=== PATIENT | female | born 1965 | race Two or more races ===

== ENCOUNTER 2022-04-05 01:09 | Inpatient (IN) | payer MEDICAID ==
[~2022-04-05] VITALS: Ht 160 cm; Wt 85.0 kg
[2022-04-05] MEDS ORDERED: FUROSEMIDE 20 MG/2 ML VIAL IV ONE (01:45)
[2022-04-05 02:05] LABS: Basophils # (auto) 0 10 ^3/uL (0-0.2); Basophils % (auto) 0.3 % (0.0-2.0); Eosinophils # (auto) 0.2 10 ^3/uL (0-0.8); Eosinophils % (auto) 1.4 % (0.0-7.0); Hematocrit 36.7 % (36.0-46.0); Hemoglobin 12.5 g/dL (12.2-16.2); Lymphocytes # (auto) 1.2 10 ^3/uL (0.4-5.4); Lymphocytes % (auto) 8.8 % (10.0-50.0); Mean Corpuscular Hemoglobin 27.4 pg (28.0-32.0); Mean Corpuscular Volume 80.4 fL (80.0-100.0); Monocytes # (auto) 0.7 10 ^3/uL (0-1.3); Monocytes % (auto) 5.2 % (0.0-12.0); Neutrophils # (auto) 11.1 10 ^3/uL (1.6-8.6); Neutrophils % (auto) 84.3 % (37.0-80.0); Nucleated Red Blood Cells % 0.1 %; Red Blood Cells 4.56 10^6/uL (4.0-5.20); Red Cell Distribution Width 16.6 % (11.8-14.3); White Blood Cell 13.2 10^3/uL (4.4-10.8)
[2022-04-05 02:23] LABS: Albumin 3.3 g/dL (3.4-5.0); Calcium 8.3 mg/dL (8.5-10.1); Potassium 3.7 mmol/L (3.5-5.1)
[2022-04-05 02:26] LABS: BUN/Creatinine Ratio 15.2
[2022-04-05 02:28] LABS: Bilirubin, Total 0.5 mg/dL (0.2-1.0); Total Protein 7.5 g/dL (6.4-8.2)
[2022-04-05 03:05] LABS: Urine Bacteria NONE SEEN /hpf (None Seen); Urine WBC 2 /hpf (0 - 5)
[2022-04-05 03:11] LABS: Urine Specific Gravity 1.005 (1.001-1.035)
[2022-04-05 03:12] LABS: Urine Blood Normal /uL (Negative)
[2022-04-05] MEDS ORDERED: cefTRIAXone 1GM/50ML D5W 50 ML IV ONE (04:45)
[2022-04-05] MEDS ORDERED: AZITHROMYCIN 500MG/ 250ML 250 ML IV ONE (04:45)
[2022-04-05] MEDS ORDERED: TEMAZEPAM 15 MG CAP PO PRN (05:45)
[2022-04-05] MEDS ORDERED: ALBUTEROL SULF 2.5 MG/0.5ML(0.5%) NEB SOLN NEB PRN (05:45)
[2022-04-05] MEDS ORDERED: ONDANSETRON HCL 4 MG/2 ML VIAL IV PRN (05:45)
[2022-04-05] MEDS ORDERED: NITROGLYCERIN 0.4 MG SL TAB SL PRN (05:45)
[2022-04-05] MEDS ORDERED: MORPHINE SULFATE INJ 2 MG/ml SYRG IV PRN (05:45)
[2022-04-05] MEDS: ACETAMINOPHEN 325 MG TAB PO PRN ×2 (06:15→20:14)
[2022-04-05 07:08] VITALS: BP 132/68
[2022-04-05] MEDS: LISINOPRIL 5 MG TAB PO SCH (09:39)
[2022-04-05] MEDS: PANTOPRAZOLE 40 MG TAB PO SCH (09:39)
[2022-04-05] MEDS: ENOXAPARIN SOD 40 MG/0.4 ML SYRINGE SC SCH ×2 (09:40→09:46)
[2022-04-06] VITALS (8 sets, daily range): BP systolic 114–145; BP diastolic 53–75
[2022-04-06 06:29] LABS: Basophils # (auto) 0 10 ^3/uL (0-0.2); Basophils % (auto) 0.5 % (0.0-2.0); Eosinophils # (auto) 0.4 10 ^3/uL (0-0.8); Eosinophils % (auto) 4.4 % (0.0-7.0); Hematocrit 32.5 % (36.0-46.0); Hemoglobin 11.2 g/dL (12.2-16.2); Lymphocytes # (auto) 2.1 10 ^3/uL (0.4-5.4); Lymphocytes % (auto) 23.9 % (10.0-50.0); Mean Corpuscular Hemoglobin 28.1 pg (28.0-32.0); Mean Corpuscular Hgb Conc. 34.5 g/dL (32.0-36.0); Mean Corpuscular Volume 81.4 fL (80.0-100.0); Monocytes # (auto) 0.6 10 ^3/uL (0-1.3); Monocytes % (auto) 6.8 % (0.0-12.0); Neutrophils # (auto) 5.8 10 ^3/uL (1.6-8.6); Neutrophils % (auto) 64.4 % (37.0-80.0); Nucleated Red Blood Cells % 0.2 %; Red Blood Cells 3.99 10^6/uL (4.0-5.20); Red Cell Distribution Width 16.5 % (11.8-14.3)
[2022-04-06 06:50] LABS: Calcium 8.7 mg/dL (8.5-10.1); Potassium 3.5 mmol/L (3.5-5.1)
[2022-04-06 06:53] LABS: Albumin 2.8 g/dL (3.4-5.0); BUN/Creatinine Ratio 17.2
[2022-04-06] MEDS ORDERED: CLON0.1T PO (06:55)
[2022-04-06 06:57] LABS: Bilirubin, Total 0.8 mg/dL (0.2-1.0); Total Protein 6.4 g/dL (6.4-8.2)
[2022-04-06] MEDS: cefTRIAXone 1GM/50ML D5W 50 ML IV SCH (08:02)
[2022-04-06] MEDS: LISINOPRIL 5 MG TAB PO SCH (08:03)
[2022-04-06] MEDS: PANTOPRAZOLE 40 MG TAB PO SCH (08:03)
[2022-04-06] MEDS: ENOXAPARIN SOD 40 MG/0.4 ML SYRINGE SC SCH ×2 (08:04→08:57)
[2022-04-06] MEDS: ACETAMINOPHEN 325 MG TAB PO PRN (08:15)
[2022-04-06] MEDS: AZITHROMYCIN 500MG/ 250ML 250 ML IV SCH (12:29)
[2022-04-06] MEDS ORDERED: DEXTROSE (50%) 50ML SYRG IV PRN (12:30)
[2022-04-06] MEDS ORDERED: DOCUSATE SOD 100 MG CAP PO PRN (14:30)
[2022-04-06] MEDS: ACCU-CHEK COMFORT CURVE STRIP VI SCH ×2 (16:56→21:32)
[2022-04-06] MEDS: InsuLIN REG 1unit/0.01ml Soln (100units/ml) SC SCH ×2 (16:56→21:54)
[2022-04-07 05:00] VITALS: BP 114/48
[2022-04-07] MEDS: InsuLIN REG 1unit/0.01ml Soln (100units/ml) SC SCH ×4 (07:00→21:21)
[2022-04-07] MEDS: ACCU-CHEK COMFORT CURVE STRIP VI SCH ×4 (07:41→21:26)
[2022-04-07 08:00] VITALS: BP 114/58
[2022-04-07 08:30] VITALS: BP 120/51
[2022-04-07] MEDS: LISINOPRIL 5 MG TAB PO SCH (08:40)
[2022-04-07] MEDS: PANTOPRAZOLE 40 MG TAB PO SCH (08:41)
[2022-04-07] MEDS: cefTRIAXone 1GM/50ML D5W 50 ML IV SCH (08:41)
[2022-04-07] MEDS: ENOXAPARIN SOD 40 MG/0.4 ML SYRINGE SC SCH (08:51)
[2022-04-07] MEDS: AZITHROMYCIN 500MG/ 250ML 250 ML IV SCH (10:00)
[2022-04-07 12:38] VITALS: BP 130/71
[2022-04-07 16:45] VITALS: BP 126/55
[2022-04-07 22:00] VITALS: BP 164/82
[2022-04-08 05:00] VITALS: BP 126/57
[2022-04-08] MEDS: ACCU-CHEK COMFORT CURVE STRIP VI SCH ×4 (07:00→21:23)
[2022-04-08] MEDS: InsuLIN REG 1unit/0.01ml Soln (100units/ml) SC SCH ×4 (07:00→21:23)
[2022-04-08 09:00] VITALS: BP 130/52
[2022-04-08] MEDS: cefTRIAXone 1GM/50ML D5W 50 ML IV SCH (09:46)
[2022-04-08] MEDS: PANTOPRAZOLE 40 MG TAB PO SCH (09:47)
[2022-04-08] MEDS: LISINOPRIL 5 MG TAB PO SCH (09:47)
[2022-04-08] MEDS: ACETAMINOPHEN 325 MG TAB PO PRN (09:50)
[2022-04-08] MEDS: ENOXAPARIN SOD 40 MG/0.4 ML SYRINGE SC SCH (10:00)
[2022-04-08] MEDS: AZITHROMYCIN 500MG/ 250ML 250 ML IV SCH (12:54)
[2022-04-08 13:00] VITALS: BP 141/72
[2022-04-08] MEDS: THROAT LOZENGES(CEPASTAT) MT PRN ×2 (15:36→21:22)
[2022-04-08 16:47] VITALS: BP 151/79
[2022-04-08 22:00] VITALS: BP 144/57
[2022-04-09 05:00] VITALS: BP 144/66
[2022-04-09] MEDS: InsuLIN REG 1unit/0.01ml Soln (100units/ml) SC SCH ×2 (06:21→11:30)
[2022-04-09] MEDS: ACCU-CHEK COMFORT CURVE STRIP VI SCH ×2 (06:21→11:30)
[2022-04-09 08:10] VITALS: BP 151/81
[2022-04-09] MEDS: cefTRIAXone 1GM/50ML D5W 50 ML IV SCH (09:31)
[2022-04-09] MEDS: PANTOPRAZOLE 40 MG TAB PO SCH (09:31)
[2022-04-09] MEDS: LISINOPRIL 5 MG TAB PO SCH (09:31)
[2022-04-09] MEDS: ENOXAPARIN SOD 40 MG/0.4 ML SYRINGE SC SCH ×2 (09:31→09:36)
[2022-04-09] MEDS ORDERED: AZIT250T8 PO (10:13)
[2022-04-09] MEDS ORDERED: ALBU108A5 IN (10:14)
[2022-04-09] MEDS: AZITHROMYCIN 500MG/ 250ML 250 ML IV SCH (10:45)
[2022-04-09 12:10] VITALS: BP 167/72
== END 2022-04-09 15:40 | disposition home or self-care (01) | DRG 139 ==
LOC: ER 01:09 → TELE 05:36 → TELE-WESTW 22:28
PROVIDERS: ADMIT Nurse Practitioner; ATTEND Internal Medicine
DX: J18.9 Pneumonia, unspecified organism (principal); J96.01 Acute respiratory failure with hypoxia; I10 Essential (primary) hypertension; E66.9 Obesity, unspecified; Z68.33 Body mass index [BMI] 33.0-33.9, adult; Z20.822 Contact with and (suspected) exposure to COVID-19
CPT/HCPCS: 36415; 71045; 80053; 81001; 82962; 83880; 84484; 85025; 85379; 87426; 96365; 96366; 96367; 96375; G0378; J0696; J1815

== ENCOUNTER 2022-08-25 01:20 | Inpatient (IN) | payer MEDICAID ==
[~2022-08-25] VITALS: Ht 160 cm; Wt 77.3 kg
[~2022-08-25 01:20] MED LIST: ALBU108A5 IN; AZIT250T8 PO; CLON0.1T PO
[2022-08-25] MEDS ORDERED: ALBUTEROL SULF 2.5 MG/0.5ML(0.5%) NEB SOLN NEB ONE (02:30)
[2022-08-25] MEDS ORDERED: IPRATROPIUM BROM 0.5 MG/2.5ML INH SOL NEB ONE (02:30)
[2022-08-25 02:40] LABS: Albumin 3.4 g/dL (3.4-5.0); Calcium 8.6 mg/dL (8.5-10.1); Potassium 3.6 mmol/L (3.5-5.1)
[2022-08-25 02:45] LABS: BUN/Creatinine Ratio 26.5 (10.0-20.0); Bilirubin, Total 0.5 mg/dL (0.2-1.0); Total Protein 8.4 g/dL (6.4-8.2)
[2022-08-25 02:46] LABS: Eosinophils # (auto) 0.1 10 ^3/uL (0-0.8); Hemoglobin 12.4 g/dL (12.2-16.2); Mean Corpuscular Volume 70.6 fL (80.0-100.0); Nucleated Red Blood Cells % 0.1 %
[2022-08-25 02:47] LABS: Basophils # (auto) 0 10 ^3/uL (0-0.2); Basophils % (auto) 0.3 % (0.0-2.0); Eosinophils % (auto) 0.5 % (0.0-7.0); Hematocrit 36.9 % (36.0-46.0); Lymphocytes # (auto) 1.2 10 ^3/uL (0.4-5.4); Mean Corpuscular Hemoglobin 23.7 pg (28.0-32.0); Mean Corpuscular Hgb Conc. 33.6 g/dL (32.0-36.0); Monocytes # (auto) 0.6 10 ^3/uL (0-1.3); Monocytes % (auto) 4.6 % (0.0-12.0); Neutrophils # (auto) 10.6 10 ^3/uL (1.6-8.6); Neutrophils % (auto) 84.6 % (37.0-80.0); Red Blood Cells 5.23 10^6/uL (4.0-5.20); White Blood Cell 12.5 10^3/uL (4.4-10.8)
[2022-08-25] MEDS ORDERED: ENOXAPARIN SOD 100 MG/1 ML SYRINGE SC ONE (05:30)
[2022-08-25] MEDS ORDERED: AZITHROMYCIN 500MG/ 250ML 250 ML IV ONE (05:30)
[2022-08-25] MEDS ORDERED: cefTRIAXone 1GM/50ML D5W 50 ML IV ONE (05:30)
[2022-08-25] MEDS ORDERED: IODIXANOL 320MG/ML 100ML BTL IV ONE (05:56)
[2022-08-25] MEDS ORDERED: NITROGLYCERIN 0.4 MG SL TAB SL PRN (12:00)
[2022-08-25] MEDS ORDERED: ALBUTEROL SULF 2.5 MG/0.5ML(0.5%) NEB SOLN NEB PRN (12:00)
[2022-08-25] MEDS ORDERED: IPRATROPIUM BROM 0.5 MG/2.5ML INH SOL NEB PRN (12:00)
[2022-08-25] MEDS ORDERED: HYDROcodone-ACET 5/325MG TAB PO PRN (12:00)
[2022-08-25] MEDS ORDERED: PANTOPRAZOLE 40 MG/10 ML VIAL INJ IV ONE (12:00)
[2022-08-25] MEDS ORDERED: MORPHINE SULFATE INJ 2 MG/ml SYRG IV PRN ×2 (12:00)
[2022-08-25] MEDS ORDERED: DEXTROSE (50%) 50ML SYRG IV PRN (12:15)
[2022-08-25] MEDS: ALBUTEROL SULF 2.5 MG/0.5ML(0.5%) NEB SOLN NEB SCH ×2 (12:30→18:45)
[2022-08-25] MEDS: IPRATROPIUM BROM 0.5 MG/2.5ML INH SOL NEB SCH ×2 (12:30→18:46)
[2022-08-25 13:57] LABS: Cholesterol 166 mg/dL (< 200); Triglycerides 147 mg/dL (< 150)
[2022-08-25 14:00] LABS: HDL Cholesterol 38 mg/dL (40-59); LDL Cholesterol 108 mg/dL (< 100)
[2022-08-25] MEDS: ACETAMINOPHEN 325 MG TAB PO PRN (16:15)
[2022-08-25 17:16] VITALS: BP 131/57
[2022-08-25] MEDS: ACCU-CHEK COMFORT CURVE STRIP VI SCH ×2 (18:39→22:40)
[2022-08-25] MEDS: InsuLIN REG 1unit/0.01ml Soln (100units/ml) SC SCH ×2 (18:40→22:40)
[2022-08-26] MEDS: IPRATROPIUM BROM 0.5 MG/2.5ML INH SOL NEB SCH ×5 (00:18→23:08)
[2022-08-26] MEDS: ALBUTEROL SULF 2.5 MG/0.5ML(0.5%) NEB SOLN NEB SCH ×5 (00:18→23:08)
[2022-08-26 06:17] LABS: Potassium 3.5 mmol/L (3.5-5.1)
[2022-08-26 06:26] LABS: Albumin 2.9 g/dL (3.4-5.0); BUN/Creatinine Ratio 23.2 (10.0-20.0); Bilirubin, Total 1.3 mg/dL (0.2-1.0); Calcium 8.4 mg/dL (8.5-10.1); Total Protein 7.3 g/dL (6.4-8.2)
[2022-08-26 06:31] LABS: Basophils # (auto) 0 10 ^3/uL (0-0.2); Eosinophils # (auto) 0.1 10 ^3/uL (0-0.8); Eosinophils % (auto) 1.7 % (0.0-7.0); Hemoglobin 10.4 g/dL (12.2-16.2); Lymphocytes # (auto) 1.6 10 ^3/uL (0.4-5.4); Red Cell Distribution Width 16.4 % (11.8-14.3)
[2022-08-26 06:33] LABS: Basophils % (auto) 0.4 % (0.0-2.0); Hematocrit 31.4 % (36.0-46.0); Lymphocytes % (auto) 19.7 % (10.0-50.0); Mean Corpuscular Hemoglobin 23.8 pg (28.0-32.0); Mean Corpuscular Hgb Conc. 33.2 g/dL (32.0-36.0); Mean Corpuscular Volume 71.8 fL (80.0-100.0); Monocytes # (auto) 0.6 10 ^3/uL (0-1.3); Monocytes % (auto) 7.1 % (0.0-12.0); Neutrophils # (auto) 5.7 10 ^3/uL (1.6-8.6); Neutrophils % (auto) 71.1 % (37.0-80.0); Red Blood Cells 4.38 10^6/uL (4.0-5.20)
[2022-08-26] MEDS: InsuLIN REG 1unit/0.01ml Soln (100units/ml) SC SCH ×4 (07:00→22:03)
[2022-08-26] MEDS: ACCU-CHEK COMFORT CURVE STRIP VI SCH ×4 (07:49→22:03)
[2022-08-26] MEDS: cefTRIAXone 1GM/50ML D5W 50 ML IV SCH (09:01)
[2022-08-26] MEDS ORDERED: AZITHROMYCIN 500MG/ 250ML 250 ML IV SCH (10:00)
[2022-08-26] MEDS: HCTZ 25 MG TAB PO SCH (10:20)
[2022-08-26] MEDS: CAPTOPRIL 25 MG TAB PO SCH (10:20)
[2022-08-26] MEDS: ENOXAPARIN SOD 40 MG/0.4 ML SYRINGE SC SCH (10:20)
[2022-08-26] MEDS: PANTOPRAZOLE 40 MG/10 ML VIAL INJ IV SCH (10:20)
[2022-08-26] MEDS: METOPROLOL SUCCINATE XL 50 MG TAB PO SCH (10:21)
[2022-08-26] MEDS: ACETAMINOPHEN 325 MG TAB PO PRN ×2 (13:06→22:03)
[2022-08-26] MEDS ORDERED: AZITHROMYCIN 500MG/ 250ML 250 ML IV ONE (13:30)
[2022-08-26] MEDS: ACETYLCYSTEINE 20%(200MG/ML) SOL 4ML NEB SCH ×2 (14:00→23:08)
[2022-08-26] MEDS: methylPREDNISolone SOD SUCC 40 MG/ML VL IV SCH ×2 (14:39→22:00)
[2022-08-26 15:22] LABS: Urine Bacteria FEW /hpf (None Seen); Urine Blood Negative /uL (Negative); Urine Specific Gravity 1.019 (1.001-1.035); Urine WBC 1 /hpf (0 - 5)
[2022-08-26 20:00] VITALS: BP 145/80
[2022-08-26] MEDS ORDERED: METO25TA93 PO (20:06)
[2022-08-26] MEDS ORDERED: MELO1TAB56 PO (20:06)
[2022-08-26] MEDS ORDERED: HYDR25TA5 PO (20:06)
[2022-08-26] MEDS ORDERED: CAPT25TA5 PO (20:06)
[2022-08-26] MEDS ORDERED: METF-916 PO (20:06)
[2022-08-26] MEDS ORDERED: ALBU108A5 PO (20:07)
[2022-08-26] MEDS ORDERED: METOCLOPRAMIDE HCL 5MG/ml INJ 2ml VIAL IV PRN (21:15)
[2022-08-26 22:00] VITALS: BP 155/80
[2022-08-27] VITALS (8 sets, daily range): BP systolic 123–162; BP diastolic 50–83
[2022-08-27] MEDS: methylPREDNISolone SOD SUCC 40 MG/ML VL IV SCH ×3 (05:14→21:07)
[2022-08-27] MEDS: InsuLIN REG 1unit/0.01ml Soln (100units/ml) SC SCH ×4 (06:07→21:00)
[2022-08-27] MEDS: ACCU-CHEK COMFORT CURVE STRIP VI SCH ×4 (06:07→22:00)
[2022-08-27] MEDS: ALBUTEROL SULF 2.5 MG/0.5ML(0.5%) NEB SOLN NEB SCH ×3 (09:45→19:16)
[2022-08-27] MEDS: IPRATROPIUM BROM 0.5 MG/2.5ML INH SOL NEB SCH ×3 (09:45→19:14)
[2022-08-27] MEDS: ACETYLCYSTEINE 20%(200MG/ML) SOL 4ML NEB SCH ×2 (09:46→14:32)
[2022-08-27] MEDS: PANTOPRAZOLE 40 MG/10 ML VIAL INJ IV SCH ×2 (09:49→10:01)
[2022-08-27] MEDS: cefTRIAXone 1GM/50ML D5W 50 ML IV SCH (09:50)
[2022-08-27] MEDS: HCTZ 25 MG TAB PO SCH (10:00)
[2022-08-27] MEDS: CAPTOPRIL 25 MG TAB PO SCH (10:00)
[2022-08-27] MEDS: METOPROLOL SUCCINATE XL 50 MG TAB PO SCH (10:00)
[2022-08-27] MEDS: ENOXAPARIN SOD 40 MG/0.4 ML SYRINGE SC SCH (10:01)
[2022-08-27] MEDS: AZITHROMYCIN 500MG/ 250ML 250 ML IV SCH (11:06)
[2022-08-27] MEDS: ACETAMINOPHEN 325 MG TAB PO PRN (20:47)
[2022-08-28] MEDS: ALBUTEROL SULF 2.5 MG/0.5ML(0.5%) NEB SOLN NEB SCH ×3 (00:12→13:37)
[2022-08-28] MEDS: IPRATROPIUM BROM 0.5 MG/2.5ML INH SOL NEB SCH ×3 (00:12→13:37)
[2022-08-28] MEDS: ACETYLCYSTEINE 20%(200MG/ML) SOL 4ML NEB SCH ×3 (00:13→13:36)
[2022-08-28 05:00] VITALS: BP 138/73
[2022-08-28] MEDS: InsuLIN REG 1unit/0.01ml Soln (100units/ml) SC SCH ×2 (06:04→12:24)
[2022-08-28] MEDS: methylPREDNISolone SOD SUCC 40 MG/ML VL IV SCH ×2 (06:13→14:37)
[2022-08-28] MEDS: ACCU-CHEK COMFORT CURVE STRIP VI SCH ×2 (06:28→12:02)
[2022-08-28 09:00] VITALS: BP 146/75
[2022-08-28] MEDS: AZITHROMYCIN 500MG/ 250ML 250 ML IV SCH (09:42)
[2022-08-28] MEDS: cefTRIAXone 1GM/50ML D5W 50 ML IV SCH (09:44)
[2022-08-28] MEDS: PANTOPRAZOLE 40 MG/10 ML VIAL INJ IV SCH (09:45)
[2022-08-28] MEDS: ENOXAPARIN SOD 40 MG/0.4 ML SYRINGE SC SCH (09:47)
[2022-08-28] MEDS: METOPROLOL SUCCINATE XL 50 MG TAB PO SCH (09:51)
[2022-08-28] MEDS: HCTZ 25 MG TAB PO SCH (09:54)
[2022-08-28] MEDS: CAPTOPRIL 25 MG TAB PO SCH (09:55)
[2022-08-28] MEDS ORDERED: AZIT500T66 PO (09:57)
[2022-08-28] MEDS ORDERED: METH4PAK PO (09:57)
[2022-08-28 12:43] VITALS: BP 158/79
[2022-08-28 13:00] VITALS: BP 129/53
== END 2022-08-28 17:17 | disposition home or self-care (01) | DRG 720 ==
LOC: ER 01:20 → TELE 12:07 → TELE-EAST 08-26 18:53
PROVIDERS: ADMIT Registered Nurse; ATTEND Family Medicine
DX: A41.9 Sepsis, unspecified organism (principal); J96.01 Acute respiratory failure with hypoxia; J18.9 Pneumonia, unspecified organism; E78.5 Hyperlipidemia, unspecified; E11.9 Type 2 diabetes mellitus without complications; E66.01 Morbid (severe) obesity due to excess calories; I10 Essential (primary) hypertension; R79.89 Other specified abnormal findings of blood chemistry; Z20.822 Contact with and (suspected) exposure to COVID-19; J98.11 Atelectasis; Z68.30 Body mass index [BMI] 30.0-30.9, adult; Z87.01 Personal history of pneumonia (recurrent); Z71.3 Dietary counseling and surveillance
CPT/HCPCS: 36415; 36600; 71045; 71250; 71275; 80053; 80061; 81001; 82805; 82962; 83036; 83605; 83735; 83880; 84443; 84484; 85025; 85379; 87040; 87086; 87088; 87186; 87426; 93970; 94640; 96365; 96366; 96367; 96372; 96375; C9113; G0378; J0696; J1815; Q9967

== ENCOUNTER 2023-03-09 02:14 | Inpatient (IN) | payer MEDICAID ==
[2023-03-09] VITALS (14 sets, daily range): BP systolic 145–150; BP diastolic 77–85; PULSE 75–106; RESP 16–32; TEMP 98.1–98.6; O2SAT 93–100
[~2023-03-09] VITALS: Ht 165.1 cm; Wt 83.0 kg
[~2023-03-09 02:14] MED LIST changes: -ALBU108A5 IN; +ALBU108A5 PO; -AZIT250T8 PO; +AZIT500T66 PO; +CAPT25TA5 PO; -CLON0.1T PO; +HYDR25TA5 PO; +MELO-335 PO; +METF-1145 PO; +METH4PAK PO; +METO25TA93 PO
[2023-03-09 02:44] LABS: Basophils # (auto) 0 10 ^3/uL (0-0.2); Eosinophils # (auto) 0 10 ^3/uL (0-0.8); Hemoglobin 12.6 g/dL (12.2-16.2); Lymphocytes # (auto) 0.9 10 ^3/uL (0.4-5.4); Monocytes # (auto) 0.7 10 ^3/uL (0-1.3)
[2023-03-09 02:46] LABS: Basophils % (auto) 0.2 % (0.0-2.0); Eosinophils % (auto) 0.1 % (0.0-7.0); Lymphocytes % (auto) 6.2 % (10.0-50.0); Mean Corpuscular Hemoglobin 24.5 pg (28.0-32.0); Mean Corpuscular Hgb Conc. 33.2 g/dL (32.0-36.0); Mean Corpuscular Volume 73.9 fL (80.0-100.0); Monocytes % (auto) 4.8 % (0.0-12.0); Neutrophils # (auto) 13.5 10 ^3/uL (1.6-8.6); Neutrophils % (auto) 88.7 % (37.0-80.0); Red Blood Cells 5.14 10^6/uL (4.0-5.20); Red Cell Distribution Width 18.5 % (11.8-14.3); White Blood Cell 15.2 10^3/uL (4.4-10.8)
[2023-03-09 03:00] LABS: Alanine Aminotransferase 17 U/L (7-40); Albumin 4.2 g/dL (3.2-4.8); Alkaline Phosphatase 88 U/L (46-116); Anion Gap 10 (5-15); Aspartate Aminotransferase 20 U/L (13-40); BUN/Creatinine Ratio 16.4 (10.0-20.0); Blood Urea Nitrogen 10 mg/dL (9-23); Carbon Dioxide 24 mmol/L (20-30); Chloride 104 mmol/L (98-107); Glucose 146 mg/dL (74-106); Magnesium 1.6 mg/dL (1.6-2.6); Sodium 138 mmol/L (136-145)
[2023-03-09 03:01] LABS: Bilirubin, Total 1.3 mg/dL (0.2-1.0); Total Protein 7.9 g/dL (5.7-8.2)
[2023-03-09] MEDS ORDERED: ACETAMINOPHEN 325 MG TAB PO PRN ×2 (03:15→04:15)
[2023-03-09] MEDS ORDERED: SODIUM CHLORIDE 0.9% 2,250 ML IV ONE (03:15)
[2023-03-09 03:28] LABS: Potassium 2.7 mmol/L (3.5-5.1)
[2023-03-09 03:29] LABS: INR 1.04 (0.9-1.15); Partial Thromboplastin Time 25.4 SEC (24.5-34.5); Prothrombin Time 10.9 sec (9.3-11.8)
[2023-03-09] MEDS ORDERED: ALBUTEROL SULF 2.5 MG/0.5ML(0.5%) NEB SOLN HHN ONE (03:45)
[2023-03-09] MEDS ORDERED: IPRATROPIUM BROM 0.5 MG/2.5ML INH SOL HHN ONE (03:45)
[2023-03-09] MEDS ORDERED: ACETAMINOPHEN 325 MG TAB PO ONE (03:45)
[2023-03-09 04:09] LABS: Lactic Acid w/Reflex 2.1 mmol/L (0.4-2.0)
[2023-03-09] MEDS ORDERED: SODIUM CHLORIDE 0.9% 1,000 ML IV SCH (04:15)
[2023-03-09] MEDS ORDERED: IPRATROPIUM BROM 0.5 MG/2.5ML INH SOL NEB PRN (04:15)
[2023-03-09] MEDS ORDERED: ALBUTEROL SULF 2.5 MG/0.5ML(0.5%) NEB SOLN NEB PRN (04:15)
[2023-03-09] MEDS ORDERED: DEXTROSE (50%) 50ML SYRG IV PRN (04:15)
[2023-03-09] MEDS ORDERED: ONDANSETRON HCL 4 MG/2 ML VIAL IV PRN (04:15)
[2023-03-09] MEDS ORDERED: HYDROcodone-ACET 5/325MG TAB PO PRN (04:15)
[2023-03-09] MEDS ORDERED: DOCUSATE SOD 100 MG CAP PO PRN (04:15)
[2023-03-09 04:35] LABS: Base Excess 3.3 mmol/L (-2.0-2.0)
[2023-03-09 05:27] LABS: Basophils # (auto) 0 10 ^3/uL (0-0.2); Eosinophils # (auto) 0 10 ^3/uL (0-0.8); Eosinophils % (auto) 0.1 % (0.0-7.0); Lymphocytes # (auto) 1.2 10 ^3/uL (0.4-5.4)
[2023-03-09] MEDS: ONDANSETRON HCL 4 MG/2 ML VIAL IV ONE ×2 (05:28→05:48)
[2023-03-09] MEDS: HEPARIN SODIUM (PORCINE) 5000 UNITS/ML 1ML VIAL SC SCH ×3 (05:28→21:36)
[2023-03-09 05:30] LABS: Basophils % (auto) 0.1 % (0.0-2.0); Hematocrit 40.7 % (36.0-46.0); Hemoglobin 12.9 g/dL (12.2-16.2); Lymphocytes % (auto) 7.8 % (10.0-50.0); Mean Corpuscular Hemoglobin 24.3 pg (28.0-32.0); Mean Corpuscular Hgb Conc. 31.7 g/dL (32.0-36.0); Mean Corpuscular Volume 76.7 fL (80.0-100.0); Monocytes # (auto) 0.8 10 ^3/uL (0-1.3); Neutrophils # (auto) 13.8 10 ^3/uL (1.6-8.6); Red Blood Cells 5.31 10^6/uL (4.0-5.20); Red Cell Distribution Width 18.5 % (11.8-14.3); White Blood Cell 15.8 10^3/uL (4.4-10.8)
[2023-03-09] MEDS: POTASSIUM CHL 20MEQ/100ML 100 ML IV SCH ×2 (05:35→08:37)
[2023-03-09 05:44] LABS: Alanine Aminotransferase 21 U/L (7-40); Alkaline Phosphatase 86 U/L (46-116); Anion Gap 10 (5-15); Aspartate Aminotransferase 34 U/L (13-40); Blood Urea Nitrogen 15 mg/dL (9-23); Calcium 9.1 mg/dL (8.7-10.4); Carbon Dioxide 24 mmol/L (20-30); Chloride 103 mmol/L (98-107); Glucose 151 mg/dL (74-106); Potassium 3.2 mmol/L (3.5-5.1); Sodium 137 mmol/L (136-145)
[2023-03-09 05:45] LABS: Albumin 4.2 g/dL (3.2-4.8); Bilirubin, Total 1.4 mg/dL (0.2-1.0); Total Protein 7.7 g/dL (5.7-8.2)
[2023-03-09 06:00] LABS: BUN/Creatinine Ratio 24.2 (10.0-20.0)
[2023-03-09] MEDS ORDERED: DexAMETHasone INJECTION 10 MG in SODIUM CHL 3% 500 ML IV SCH (06:00)
[2023-03-09] MEDS ORDERED: PIPERACILLIN-TAZOB 3.375GM 100 ML IV SCH (06:00)
[2023-03-09] MEDS: DexAMETHasone SOD PHOS 10MG/1ML VIAL INJ IV SCH ×3 (06:22→21:57)
[2023-03-09 06:43] LABS: Rapid Influenza A Negative (Negative); Rapid Influenza B Negative (Negative); Respiratory Syncytial Virus Ag Negative
[2023-03-09 06:44] LABS: COVID19 ANTIGEN SOFIA FIA NEGATIVE (NEGATIVE)
[2023-03-09] MEDS: InsuLIN REG 1unit/0.01ml Soln (100units/ml) SC SCH ×4 (07:00→22:04)
[2023-03-09] MEDS ORDERED: NITROGLYCERIN 0.4 MG SL TAB SL PRN (07:15)
[2023-03-09] MEDS ORDERED: MORPHINE SULFATE INJ 2 MG/ml SYRG IV PRN (07:15)
[2023-03-09] MEDS: ACCU-CHEK COMFORT CURVE STRIP VI SCH ×4 (07:17→22:06)
[2023-03-09] MEDS ORDERED: guaiFENesin 200 MG/10 ML UD PO PRN (10:00)
[2023-03-09] MEDS ORDERED: FUROSEMIDE 20 MG/2 ML VIAL IV ONE (10:00)
[2023-03-09] MEDS: IPRATROPIUM BROM 0.5 MG/2.5ML INH SOL NEB SCH ×4 (10:28→21:58)
[2023-03-09] MEDS: ALBUTEROL SULF 2.5 MG/0.5ML(0.5%) NEB SOLN NEB SCH ×4 (10:28→21:59)
[2023-03-09] MEDS: VANCOMYCIN 1GM/250ML 250 ML IV SCH ×2 (12:35→21:57)
[2023-03-09] MEDS: ASPirin 81 mg TAB PO SCH (12:36)
[2023-03-09] MEDS: FAMOTIDINE (10MG/ML) 2ML VL IV SCH ×2 (12:36→21:57)
[2023-03-09 13:23] LABS: Urine Bacteria NONE SEEN /hpf (None Seen); Urine Blood Negative /uL (Negative); Urine Clarity Clear (Clear); Urine Mucus FEW (None Seen); Urine Protein, UAD Negative (Negative); Urine Specific Gravity 1.011 (1.001-1.035); Urine Urobilinogen Normal (Negative); Urine WBC 1 /hpf (0 - 5)
[2023-03-09 13:27] LABS: Urine Color STRAW (Yellow)
[2023-03-09] MEDS ORDERED: POTASSIUM CHL 20 Meq TABLET PO ONE (14:30)
[2023-03-09] MEDS: ACETYLCYSTEINE 20%(200MG/ML) SOL 4ML NEB SCH ×2 (14:40→21:59)
[2023-03-09] MEDS: AZITHROMYCIN 500MG/ 250ML 250 ML IV SCH (14:54)
[2023-03-09] MEDS: PIPERACILLIN-TAZOB 3.375GM 100 ML IV SCH ×2 (14:57→22:30)
[2023-03-10] VITALS (17 sets, daily range): BP systolic 142–155; BP diastolic 69–75; PULSE 76–99; RESP 14–20; TEMP 97.6–98.4; O2SAT 94–100
[2023-03-10] MEDS: IPRATROPIUM BROM 0.5 MG/2.5ML INH SOL NEB SCH ×6 (02:00→22:14)
[2023-03-10] MEDS: ALBUTEROL SULF 2.5 MG/0.5ML(0.5%) NEB SOLN NEB SCH ×6 (02:00→22:14)
[2023-03-10] MEDS: HEPARIN SODIUM (PORCINE) 5000 UNITS/ML 1ML VIAL SC SCH ×3 (03:15→22:31)
[2023-03-10 05:09] LABS: Basophils # (auto) 0 10 ^3/uL (0-0.2); Eosinophils # (auto) 0 10 ^3/uL (0-0.8)
[2023-03-10 05:11] LABS: Hematocrit 34.8 % (36.0-46.0); Hemoglobin 11.4 g/dL (12.2-16.2); Lymphocytes # (auto) 0.6 10 ^3/uL (0.4-5.4); Lymphocytes % (auto) 3.9 % (10.0-50.0); Mean Corpuscular Hemoglobin 24.2 pg (28.0-32.0); Mean Corpuscular Hgb Conc. 32.7 g/dL (32.0-36.0); Mean Corpuscular Volume 74.1 fL (80.0-100.0); Monocytes # (auto) 0.4 10 ^3/uL (0-1.3); Monocytes % (auto) 2.7 % (0.0-12.0); Neutrophils # (auto) 15.3 10 ^3/uL (1.6-8.6); Neutrophils % (auto) 93.4 % (37.0-80.0); Red Cell Distribution Width 18.7 % (11.8-14.3); White Blood Cell 16.4 10^3/uL (4.4-10.8)
[2023-03-10 05:36] LABS: Alanine Aminotransferase 13 U/L (7-40); Albumin 3.9 g/dL (3.2-4.8); Alkaline Phosphatase 70 U/L (46-116); Anion Gap 9 (5-15); Aspartate Aminotransferase 19 U/L (13-40); BUN/Creatinine Ratio 18.2 (10.0-20.0); Blood Urea Nitrogen 10 mg/dL (9-23); Calcium 8.9 mg/dL (8.7-10.4); Carbon Dioxide 24 mmol/L (20-30); Chloride 106 mmol/L (98-107); Glucose 133 mg/dL (74-106); Magnesium 1.7 mg/dL (1.6-2.6); Potassium 3.1 mmol/L (3.5-5.1); Sodium 139 mmol/L (136-145)
[2023-03-10 05:37] LABS: Bilirubin, Total 1.2 mg/dL (0.2-1.0); Total Protein 7.2 g/dL (5.7-8.2)
[2023-03-10] MEDS: PIPERACILLIN-TAZOB 3.375GM 100 ML IV SCH ×2 (05:44→14:47)
[2023-03-10] MEDS: DexAMETHasone SOD PHOS 10MG/1ML VIAL INJ IV SCH (05:47)
[2023-03-10] MEDS: ACETYLCYSTEINE 20%(200MG/ML) SOL 4ML NEB SCH ×3 (06:49→22:14)
[2023-03-10] MEDS: InsuLIN REG 1unit/0.01ml Soln (100units/ml) SC SCH ×4 (08:00→22:00)
[2023-03-10] MEDS: ACCU-CHEK COMFORT CURVE STRIP VI SCH ×4 (08:00→22:16)
[2023-03-10] MEDS ORDERED: POTASSIUM CHL 20 Meq TABLET PO ONE ×2 (09:30→10:00)
[2023-03-10] MEDS: VANCOMYCIN 1GM/250ML 250 ML IV SCH ×2 (10:34→22:11)
[2023-03-10] MEDS: ASPirin 81 mg TAB PO SCH (10:35)
[2023-03-10] MEDS: FAMOTIDINE (10MG/ML) 2ML VL IV SCH ×2 (10:35→22:09)
[2023-03-10] MEDS: AZITHROMYCIN 500MG/ 250ML 250 ML IV SCH (12:59)
[2023-03-10] MEDS: ACYCLOVIR 400 MG TAB PO SCH ×3 (14:47→22:24)
[2023-03-10] MEDS: hydrALAZINE HCL 20 MG/ML VL IV PRN (22:25)
[2023-03-11] VITALS (24 sets, daily range): BP systolic 142–165; BP diastolic 66–83; PULSE 69–120; RESP 16–19; TEMP 97.5–98.4; O2SAT 94–100
[2023-03-11] MEDS: PIPERACILLIN-TAZOB 3.375GM 100 ML IV SCH ×4 (00:04→23:14)
[2023-03-11] MEDS: ALBUTEROL SULF 2.5 MG/0.5ML(0.5%) NEB SOLN NEB SCH ×6 (02:33→22:32)
[2023-03-11] MEDS: IPRATROPIUM BROM 0.5 MG/2.5ML INH SOL NEB SCH ×6 (02:33→22:32)
[2023-03-11] MEDS: ACETYLCYSTEINE 20%(200MG/ML) SOL 4ML NEB SCH ×2 (06:27→14:00)
[2023-03-11] MEDS: HEPARIN SODIUM (PORCINE) 5000 UNITS/ML 1ML VIAL SC SCH ×3 (06:31→23:04)
[2023-03-11] MEDS: ACYCLOVIR 400 MG TAB PO SCH ×5 (06:31→23:05)
[2023-03-11] MEDS: hydrALAZINE HCL 20 MG/ML VL IV PRN (06:34)
[2023-03-11] MEDS: ACCU-CHEK COMFORT CURVE STRIP VI SCH ×4 (07:00→23:23)
[2023-03-11] MEDS: InsuLIN REG 1unit/0.01ml Soln (100units/ml) SC SCH ×4 (07:00→22:00)
[2023-03-11] MEDS: DexAMETHasone SOD PHOS 10MG/1ML VIAL INJ IV SCH (08:30)
[2023-03-11] MEDS: FAMOTIDINE (10MG/ML) 2ML VL IV SCH ×2 (08:30→23:05)
[2023-03-11] MEDS: ASPirin 81 mg TAB PO SCH (08:31)
[2023-03-11] MEDS: VANCOMYCIN 1GM/250ML 250 ML IV SCH ×2 (08:32→23:14)
[2023-03-11] MEDS: AZITHROMYCIN 500MG/ 250ML 250 ML IV SCH (13:40)
[2023-03-11] MEDS ORDERED: HEPARIN SODIUM (PORCINE) 5000 UNITS/ML 1ML VIAL ONE ×2 (16:19)
[2023-03-11] MEDS ORDERED: VANCOMYCIN PER PHARMACY 0 MG IV SCH (17:45)
[2023-03-11] MEDS ORDERED: HCTZ 25 MG TAB PO ONE (20:00)
[2023-03-11] MEDS ORDERED: METOPROLOL SUCCINATE XL 50 MG TAB PO ONE (20:00)
[2023-03-11] MEDS ORDERED: MELATONIN 5 MG TAB PO ONE (22:00)
[2023-03-12] VITALS (10 sets, daily range): BP systolic 133–168; BP diastolic 76–84; PULSE 68–85; RESP 17–20; TEMP 36.9; O2SAT 97–100
[2023-03-12] MEDS: IPRATROPIUM BROM 0.5 MG/2.5ML INH SOL NEB SCH ×4 (02:00→14:00)
[2023-03-12] MEDS: ALBUTEROL SULF 2.5 MG/0.5ML(0.5%) NEB SOLN NEB SCH ×4 (02:00→14:00)
[2023-03-12] MEDS: ACETYLCYSTEINE 20%(200MG/ML) SOL 4ML NEB SCH (06:51)
[2023-03-12] MEDS: ACYCLOVIR 400 MG TAB PO SCH ×4 (06:57→18:00)
[2023-03-12] MEDS: HEPARIN SODIUM (PORCINE) 5000 UNITS/ML 1ML VIAL SC SCH ×2 (06:58→14:00)
[2023-03-12] MEDS: InsuLIN REG 1unit/0.01ml Soln (100units/ml) SC SCH ×3 (06:58→17:00)
[2023-03-12] MEDS: PIPERACILLIN-TAZOB 3.375GM 100 ML IV SCH ×2 (06:59→14:30)
[2023-03-12] MEDS: ACCU-CHEK COMFORT CURVE STRIP VI SCH ×3 (06:59→17:59)
[2023-03-12] MEDS ORDERED: METOPROLOL SUCCINATE XL 50 MG TAB PO SCH (10:00)
[2023-03-12] MEDS ORDERED: HCTZ 25 MG TAB PO SCH (10:00)
[2023-03-12] MEDS: VANCOMYCIN 1GM/250ML 250 ML IV SCH (10:00)
[2023-03-12] MEDS ORDERED: LISI20TA56 PO (11:13)
[2023-03-12] MEDS ORDERED: LEVO750T8 PO (11:13)
[2023-03-12] MEDS ORDERED: ACYC400T16 PO (11:13)
[2023-03-12] MEDS ORDERED: METH4PAK PO (11:13)
[2023-03-12] MEDS: ASPirin 81 mg TAB PO SCH (11:19)
[2023-03-12] MEDS: AZITHROMYCIN 500MG/ 250ML 250 ML IV SCH (11:19)
[2023-03-12] MEDS: DexAMETHasone SOD PHOS 10MG/1ML VIAL INJ IV SCH (11:22)
[2023-03-12] MEDS: FAMOTIDINE (10MG/ML) 2ML VL IV SCH (11:22)
== END 2023-03-12 18:16 | disposition home or self-care (01) | DRG 720 ==
LOC: ER 02:14 → TELE 07:03 → TELE-EAST 19:10
PROVIDERS: ADMIT Nurse Practitioner Family; ATTEND Internal Medicine Geriatric Medicine
DX: A41.9 Sepsis, unspecified organism (principal); J96.01 Acute respiratory failure with hypoxia; J15.69 Pneumonia due to other Gram-negative bacteria; J18.9 Pneumonia, unspecified organism; B02.9 Zoster without complications; I10 Essential (primary) hypertension; Z20.822 Contact with and (suspected) exposure to COVID-19; E87.6 Hypokalemia; E11.9 Type 2 diabetes mellitus without complications; Z79.899 Other long term (current) drug therapy
CPT/HCPCS: 36415; 36600; 71045; 80053; 80202; 81001; 82805; 82962; 83605; 83735; 83880; 84484; 85025; 85610; 85730; 87040; 87086; 87426; 87804; 87807; 93005; 94640; 96361; 96374; 99291; G0378; J1100; J1815; J2405; J2543; J3480; J3490

== ENCOUNTER → 2024-03-16 | Outpatient (CLI) | payer MEDICAID ==
[~2024-03-16] MED LIST changes: +ACYC400T16 PO; -AZIT500T66 PO; -CAPT25TA5 PO; +LEVO750T8 PO; +LISI20TA56 PO; -MELO-335 PO; +MELO15TA29 PO
[2024-03-16 10:12] LABS: Urine Bacteria None Seen /hpf (None Seen)
[2024-03-16 10:41] LABS: Basophils # (auto) 0 10 ^3/uL (0-0.2); Basophils % (auto) 0.6 % (0.0-2.0); Eosinophils # (auto) 0.1 10 ^3/uL (0-0.8); Eosinophils % (auto) 2.1 % (0.0-7.0); Hematocrit 42.3 % (36.0-46.0); Hemoglobin 14.3 g/dL (12.2-16.2); Lymphocytes # (auto) 2.1 10 ^3/uL (0.4-5.4); Lymphocytes % (auto) 30.2 % (10.0-50.0); Mean Corpuscular Hemoglobin 27.7 pg (28.0-32.0); Mean Corpuscular Hgb Conc. 33.8 g/dL (32.0-36.0); Mean Corpuscular Volume 81.7 fL (80.0-100.0); Monocytes # (auto) 0.4 10 ^3/uL (0-1.3); Monocytes % (auto) 6.5 % (0.0-12.0); Neutrophils # (auto) 4.1 10 ^3/uL (1.6-8.6); Neutrophils % (auto) 60.6 % (37.0-80.0); Nucleated Red Blood Cells % 0.1 %; Platelet Count (auto) 260 10^3/uL (140-450); Red Blood Cells 5.18 10^6/uL (4.0-5.20); White Blood Cell 6.8 10^3/uL (4.4-10.8)
[2024-03-16 10:49] LABS: Urine Blood Negative /uL (Negative); Urine Clarity Clear (Clear); Urine Color Light-Yellow (Yellow); Urine Protein, UAD Negative (Negative); Urine Urobilinogen Normal (Negative); Urine WBC 1 /hpf (0 - 5)
[2024-03-16 11:34] LABS: Alanine Aminotransferase 26 U/L (7-40); Albumin 4.5 g/dL (3.2-4.8); Alkaline Phosphatase 89 U/L (46-116); Anion Gap 8 (5-15); Aspartate Aminotransferase 15 U/L (13-40); BUN/Creatinine Ratio 27.5 (10.0-20.0); Blood Urea Nitrogen 19 mg/dL (9-23); Calcium 10.2 mg/dL (8.7-10.4); Carbon Dioxide 27 mmol/L (20-31); Chloride 107 mmol/L (98-107); Glucose 110 mg/dL (74-106); Potassium 3.4 mmol/L (3.5-5.1); Sodium 142 mmol/L (136-145); Total Protein 8.3 g/dL (5.7-8.2)
== END | disposition home or self-care (01) ==
LOC: LAB 09:55
PROVIDERS: ATTEND Student in an Organized Health Care Education/Training Program
DX: I10 Essential (primary) hypertension (principal); E11.9 Type 2 diabetes mellitus without complications
CPT/HCPCS: 36415; 80053; 81001; 82306; 83036; 84443; 85025

== ENCOUNTER → 2024-07-06 | Outpatient (CLI) | payer MEDICAID ==
[2024-07-06 11:57] LABS: Basophils # (auto) 0 10 ^3/uL (0-0.2); Basophils % (auto) 0.6 % (0.0-2.0); Eosinophils # (auto) 0.1 10 ^3/uL (0-0.8); Eosinophils % (auto) 1.8 % (0.0-7.0); Hematocrit 42.4 % (36.0-46.0); Hemoglobin 14.5 g/dL (12.2-16.2); Lymphocytes # (auto) 2.3 10 ^3/uL (0.4-5.4); Lymphocytes % (auto) 33.4 % (10.0-50.0); Mean Corpuscular Hgb Conc. 34.2 g/dL (32.0-36.0); Mean Corpuscular Volume 82.1 fL (80.0-100.0); Monocytes # (auto) 0.4 10 ^3/uL (0-1.3); Monocytes % (auto) 6.3 % (0.0-12.0); Neutrophils % (auto) 57.9 % (37.0-80.0); Nucleated Red Blood Cells % 0.1 %; Platelet Count (auto) 228 10^3/uL (140-450); Red Blood Cells 5.17 10^6/uL (4.0-5.20); Red Cell Distribution Width 14.8 % (11.8-14.3); White Blood Cell 6.8 10^3/uL (4.4-10.8)
[2024-07-06 12:15] LABS: Urine Bacteria FEW /hpf (None Seen); Urine Blood Negative /uL (Negative); Urine Clarity Clear (Clear); Urine Color Light-Yellow (Yellow); Urine Protein, UAD Negative (Negative); Urine Specific Gravity 1.011 (1.001-1.035); Urine Squamous Epithelial Cell FEW /hpf (<5); Urine Urobilinogen Normal (Negative); Urine WBC 1 /HPF (0-5); Urine pH 5.5 (5.0-9.0)
[2024-07-06 12:22] LABS: Alanine Aminotransferase 19 U/L (7-40); Albumin 4.5 g/dL (3.2-4.8); Alkaline Phosphatase 95 U/L (46-116); Anion Gap 9 (5-15); Aspartate Aminotransferase 16 U/L (13-40); BUN/Creatinine Ratio 17.4 (10.0-20.0); Blood Urea Nitrogen 12 mg/dL (9-23); Calcium 10.1 mg/dL (8.7-10.4); Carbon Dioxide 27 mmol/L (20-31); Chloride 105 mmol/L (98-107); Glucose 99 mg/dL (74-106); Potassium 3.6 mmol/L (3.5-5.1); Sodium 141 mmol/L (136-145)
[2024-07-06 12:23] LABS: Bilirubin, Total 0.7 mg/dL (0.2-1.0); Cholesterol 196 mg/dL (< 200); Total Protein 7.6 g/dL (5.7-8.2)
[2024-07-06 12:28] LABS: HDL Cholesterol 39 mg/dL (40-59); LDL Cholesterol 138 mg/dL (< 100); Triglycerides 159 mg/dL (< 150)
[2024-07-06 12:41] LABS: Creatinine, Urine 41.71 mg/dL (30.0-125.0)
== END | disposition home or self-care (01) ==
LOC: LAB 10:34
PROVIDERS: ATTEND Student in an Organized Health Care Education/Training Program
DX: I10 Essential (primary) hypertension (principal); E11.9 Type 2 diabetes mellitus without complications
CPT/HCPCS: 36415; 80053; 80061; 81001; 82043; 82570; 83036; 84443; 85025

== ENCOUNTER 2025-02-16 10:01 | Outpatient (CLI) | payer MEDICAID ==
[2025-02-16 10:25] LABS: Hematocrit 39.9 % (36.0-46.0); Hemoglobin 13.8 g/dL (12.2-16.2); Mean Corpuscular Hemoglobin 28.9 pg (28.0-32.0); Mean Corpuscular Volume 83.5 fL (80.0-100.0); Nucleated Red Blood Cells % 0.1 %
[2025-02-16 10:49] LABS: Alanine Aminotransferase 14 U/L (7-40); Albumin 4.1 g/dL (3.2-4.8); Alkaline Phosphatase 75 U/L (46-116); Anion Gap 9 (5-15); BUN/Creatinine Ratio 25.0 (10.0-20.0); Bilirubin, Total 0.7 mg/dL (0.2-1.0); Blood Urea Nitrogen 16 mg/dL (9-23); Calcium 9.0 mg/dL (8.7-10.4); Carbon Dioxide 29 mmol/L (20-31); Chloride 105 mmol/L (98-107); Glucose 101 mg/dL (74-106); Sodium 143 mmol/L (136-145); Total Protein 7.6 g/dL (5.7-8.2)
[2025-02-16 10:52] LABS: Cholesterol 201 mg/dL (< 200); HDL Cholesterol 38 mg/dL (40-59); Potassium 3.4 mmol/L (3.5-5.1); Triglycerides 172 mg/dL (< 150)
[2025-02-16 11:09] LABS: Urine Protein, UAD Negative (Negative)
== END 2025-02-16 17:00 | disposition home or self-care (01) ==
LOC: LAB 10:01
PROVIDERS: ATTEND Student in an Organized Health Care Education/Training Program
DX: I10 Essential (primary) hypertension (principal); E11.29 Type 2 diabetes mellitus with other diabetic kidney complication; E78.5 Hyperlipidemia, unspecified; Z12.11 Encounter for screening for malignant neoplasm of colon; Z79.899 Other long term (current) drug therapy
CPT/HCPCS: 36415; 80053; 80061; 81001; 82306; 83036; 84439; 84443; 85025